=== PATIENT | male | born 1955 | race Caucasian/White ===

== ENCOUNTER → 2022-05-25 | Outpatient (CLI) | payer MEDICARE, OTHER ==
--- NOTE | 2022-05-25 12:21 | CA ---
Transthoracic Echo Report Name: Sam Dixon Age: 67 Gender: M : 1955 Exam Date: 05/25/2022 11:16 Exam Location: [place] [facility] Ht (in): 73 Wt (lb): 230 Ordering Physician: Lisa Varghese MD Attending/Referring Phys: Lisa Mcintosh [facility] [employer] Jayda Brito RDCS Procedure CPT: Indications: R06.02 dyspnea Cardiac Hx: Technical Quality: Fair Contrast 1: Total Dose (mL): Contrast 2: Total Dose (mL): MEASUREMENTS (Male / Female) Normal Values 2D ECHO LV Diastolic Diameter PLAX 4.4 cm 4.2 - 5.9 / 3.9 - 5.3 cm LV Systolic Diameter PLAX 2.7 cm IVS Diastolic Thickness 1.7 cm 0.6 - 1.0 / 0.6 - 0.9 cm LVPW Diastolic Thickness 1.4 cm 0.6 - 1.0 / 0.6 - 0.9 cm LV Relative Wall Thickness 0.7 RV Internal Dim ED PLAX 2.5 cm LVOT Diameter 2.7 cm LA Volume 56.1 cm??? 18 - 58 / 22 - 52 cm??? M-MODE Aortic Root Diameter MM 3.2 cm LA Systolic Diameter MM 4.2 cm LA Ao Ratio MM 1.3 DOPPLER AV Peak Velocity 110.5 cm/s AV Peak Gradient 4.9 mmHg AV Mean Velocity 85.5 cm/s AV Mean Gradient 3.1 mmHg AV Velocity Time Integral 25.1 cm LVOT Peak Velocity 106.5 cm/s LVOT Peak Gradient 4.5 mmHg LVOT Velocity Time Integral 21.9 cm LVOT Stroke Volume 127.1 cm??? LVOT Stroke Volume Index 55.6 ml/m??? LVOT Cardiac Index 3743.5 cm???/min???m??? AV Area Cont Eq vti 5.1 cm??? AV Area Cont Eq pk 5.6 cm??? MV Peak Velocity 64.9 cm/s MV Peak Gradient 1.7 mmHg MV Mean Velocity 40.5 cm/s MV Mean Gradient 0.8 mmHg MV Velocity Time Integral 17.3 cm MV Area PHT 2.7 cm??? MR Peak Velocity 147.8 cm/s MR Peak Gradient 8.7 mmHg Mitral E Point Velocity 61.6 cm/s Mitral A Point Velocity 57.0 cm/s Mitral E to A Ratio 1.1 MV Deceleration Time 277.1 ms MV E' Velocity 10.3 cm/s Mitral E to MV E' Ratio 6.0 TR Peak Velocity 206.5 cm/s TR Peak Gradient 17.1 mmHg Right Ventricular Systolic Press 21.2 mmHg PV Peak Velocity 98.0 cm/s PV Peak Gradient 3.8 mmHg PI Peak Gradient 14.9 mmHg FINDINGS Left Ventricle Moderately increased left ventricular wall thickness. Normal Left ventricular size, systolic function with no obvious regional wall motion abnormalities. Normal Left ventricular diastolic filling pattern. Left ventricular ejection fraction is estimated at 55-60 %. Right Ventricle Normal right ventricular size and function. Right ventricular systolic pressure within normal limits. Right Atrium Normal right atrial size. Left Atrium Normal left atrial size. Mitral Valve Structurally normal mitral valve. No mitral stenosis. Mild mitral regurgitation. Aortic Valve Trileaflet aortic valve. No aortic valve stenosis, trace regurgitation. Tricuspid Valve Structurally normal tricuspid valve. Mild tricuspid regurgitation. Pulmonic Valve Trace pulmonic regurgitation. Pericardium No pericardial effusion. Aorta Normal size aortic root and proximal ascending aorta. CONCLUSIONS 1. Normal size and systolic function with moderate LVH 2. Mild mitral and tricuspid regurgitation 3. Trace aortic and pulmonic regurgitation Previewed by: Dr. Cristhian Fitzpatrick MD (Electronically Signed) Final Date: 25 May 2022 12:20
--- NOTE | 2022-05-25 12:28 | CA ---
Exercise Stress Test Report Name: Sam Dixon Exam Date: 05/25/2022 11:03 Exam Location: [place] Stress Ht (in): 73 Wt (lb): 230 BSA: 2.28 Ordering Phys: Lisa Varghese MD Referring Phys: Lisa Mcintosh Technologist: Ismael Stafford Age: 67 Gender: M : 1955 Procedure CPT: Indications: R06.02 dyspnea ICD-10 Codes: Patient History: Medications: Meds past 24 hrs: Pretest Chest Pain: STRESS TEST Wallace Protocol Exercise Duration (min:sec): 08:[address] Depressions (mm): 0 Angina Score: 0 Burns Score: 8.37 Resting HR (bpm): 58 Peak HR (bpm): 142 Resting BP (mmHg): 105 / 71 Peak BP (mmHg): 154 / 78 MPHR: 155 Target HR: 132 % MPHR: 92 METS: 10.3 Total Dose: Peak Dose: Atropine: Double Product: 55314 BP Response: Stress Termination: Reached target heart rate Stress Symptoms: SHORT OF BREATH Stress Summary: The patient's target heart rate was achieved, The hemodynamic response to exercise was normal ECG ANALYSIS Resting ECG: Sinus rhythm. Normal conduction. No arrhythmias. Normal repolarization. Stress ECG: No ECG evidence of ischemia with exercise. CONCLUSIONS Patient falls into low-risk group (DTS >= +5). This associates the patient with an annual CV mortality <= 0.5%. 1. Average exercise tolerance 2. Normal EKG stress test with no evidence of stress-induced ischemia Dr. Cristhian Fitzpatrick MD (Electronically Signed) Final Date: 25 May 2022 12:28
== END | disposition home or self-care (01) ==
LOC: RADNMMAIN 10:34
PROVIDERS: ATTEND Family Medicine
DX: I08.3 Combined rheumatic disorders of mitral, aortic and tricuspid valves (principal); E78.5 Hyperlipidemia, unspecified
CPT/HCPCS: 93017; 93306